=== PATIENT | male | born 1955 | race Caucasian/White ===

== ENCOUNTER 2021-03-07 20:04 | Inpatient (IN) ==
[2021-03-07] MEDS ORDERED: Ondansetron 4 MG/2 ML VIAL IVP PRN (23:48)
[2021-03-07] MEDS ORDERED: Acetaminophen 325 MG TABLET PO PRN (23:48)
[2021-03-07] MEDS ORDERED: Naloxone 0.4 MG/ML INJ IVP PRN (23:48)
[2021-03-07] MEDS ORDERED: Ipratropium 1 PUFF INHALER IH PRN (23:51)
[2021-03-08] MEDS: *HR* LORazepam 2 MG/ML VIAL IVP PRN (01:01)
[2021-03-08] MEDS ORDERED: *HR* Dextrose 50 % in Water (Syg) 50 ML SYRINGE IVP PRN (01:53)
[2021-03-08] MEDS ORDERED: D5% in Water 1,000 ML IVC PRN (01:53)
[2021-03-08] MEDS ORDERED: Dextrose Gel 15 GM/37.5 ML TUBE PO PRN ×2 (01:53)
[2021-03-08] MEDS: Dexmedetomidine HCl 400 MCG/100 ML MLS IVC SCH ×3 (02:33→20:16)
[2021-03-08 04:13] LABS: Hematocrit 42.3 % (37.5-50.1); Hemoglobin 13.2 g/dL (12.9-16.9); Mean Corpuscular HGB Conc 31.2 g/dL (31.6-35.5); Mean Corpuscular Hemoglobin 30.1 pg (28.0-33.3); Mean Corpuscular Volume 96.4 fL (83.0-100.0); Platelet Count 131 K/mcL (140-400); Red Blood Count 4.39 M/mcL (4.19-5.50); Red Cell Distribution Width 13.9 % (11.5-14.5); White Blood Count 17.3 K/mcL (4.3-11.1)
[2021-03-08 05:04] LABS: BUN/Creatinine Ratio 33 (6-26); Blood Urea Nitrogen 30 mg/dL (8-23); C-Reactive Protein 85 mg/L (Less than 10); Calcium 8.2 mg/dL (8.6-10.3); Carbon Dioxide 20 mEq/L (23-29); Chloride 109 mEq/L (98-107); Creatine Kinase 69 Units/L (30-223); Ferritin 662 ng/mL (20-250); Glucose 170 mg/dL (70-105); Lactate Dehydrogenase 755 Units/L (140-271); Osmolality,Calculated 302 (280-300); Potassium 3.8 mEq/L (3.5-5.1); Sodium 141 mEq/L (136-145); eGFR For African Americans > 60 (> 60); eGFR For Non-African Americans > 60 (> 60)
[2021-03-08] MEDS: *HR* Enoxaparin 40 MG/0.4 ML SYRINGE SQ SCH (06:37)
[2021-03-08] MEDS: Insulin LISPRO 300 UNITS/3 ML VIAL SUBQ SCH ×3 (07:52→19:02)
[2021-03-08] MEDS: Dexamethasone Sodium Phos/PF 10 MG/ML VIAL IVP SCH (07:52)
[2021-03-08 13:21] LABS: Immature Platelets 1.8 % (1.1-6.1); Mean Corpuscular Hemoglobin 30.2 pg (28.0-33.3); Mean Platelet Volume 9.3 fL (9.4-12.4); Red Cell Distribution Width 13.9 % (11.5-14.5)
[2021-03-08 13:27] LABS: Basophils # 0.1 K/mcL (0.0-0.2); Basophils % 0.7 %; Eosinophils % 0.1 %; Hematocrit 38.4 % (37.5-50.1); Hemoglobin 12.7 g/dL (12.9-16.9); Immature Granulocytes % 4.2 % (0-4); Lymphocytes # 0.5 K/mcL (0.6-4.6); Lymphocytes % 3.4 %; Mean Corpuscular HGB Conc 33.1 g/dL (31.6-35.5); Mean Corpuscular Volume 91.4 fL (83.0-100.0); Monocytes # 0.6 K/mcL (0.0-1.3); Monocytes % 4.2 %; Neutrophils # 12.6 K/mcL (1.6-8.9); Nucleated Red Blood Cells 0.4 /100 WBC (0); Platelet Count 215 K/mcL (140-400); Segmented Neutrophils % 87.4 %; White Blood Count 14.4 K/mcL (4.3-11.1)
[2021-03-08 13:39] LABS: Albumin 3.1 g/dL (3.5-5.7); Bilirubin,Direct 0.3 mg/dL (0.0-0.2); Bilirubin,Indirect 0.9 mg/dL (0.0-1.0); Bilirubin,Total 1.2 mg/dL (0.3-1.0); Total Protein 6.1 g/dL (6.4-8.9)
[2021-03-09] MEDS: Insulin LISPRO 300 UNITS/3 ML VIAL SUBQ SCH ×4 (00:24→18:32)
[2021-03-09] MEDS: *HR* Enoxaparin 40 MG/0.4 ML SYRINGE SQ SCH ×2 (05:05→20:58)
[2021-03-09] MEDS: Dexmedetomidine HCl 400 MCG/100 ML MLS IVC SCH ×2 (05:05→23:02)
[2021-03-09] MEDS: Dexamethasone Sodium Phos/PF 10 MG/ML VIAL IVP SCH (07:56)
[2021-03-09] MEDS ORDERED: Benzonatate 100 MG CAPSULE PO PRN (10:08)
[2021-03-09] MEDS: Furosemide 40 MG/4 ML VIAL IVP SCH (11:40)
[2021-03-09] MEDS: Saliva Stimulant 44.3ml BOTTLE PO PRN ×4 (12:13→20:57)
[2021-03-09] MEDS: *HR* LORazepam 2 MG/ML VIAL IVP PRN (21:22)
[2021-03-10 02:44] LABS: Basophils # 0.1 K/mcL (0.0-0.2); Basophils % 0.6 %; Hematocrit 42.7 % (37.5-50.1); Hemoglobin 13.9 g/dL (12.9-16.9); Immature Granulocytes % 4.1 % (0-4); Lymphocytes % 5.5 %; Mean Corpuscular HGB Conc 32.6 g/dL (31.6-35.5); Mean Corpuscular Hemoglobin 29.6 pg (28.0-33.3); Mean Platelet Volume 9.5 fL (9.4-12.4); Monocytes # 0.7 K/mcL (0.0-1.3); Neutrophils # 15.3 K/mcL (1.6-8.9); Nucleated Red Blood Cells 0.1 /100 WBC (0); Platelet Count 190 K/mcL (140-400); Red Blood Count 4.69 M/mcL (4.19-5.50); Red Cell Distribution Width 13.3 % (11.5-14.5); Segmented Neutrophils % 85.8 %; White Blood Count 17.9 K/mcL (4.3-11.1)
[2021-03-10] MEDS: Insulin LISPRO 300 UNITS/3 ML VIAL SUBQ SCH ×4 (02:57→18:06)
[2021-03-10 03:03] LABS: BUN/Creatinine Ratio 41 (6-26); Blood Urea Nitrogen 38 mg/dL (8-23); Calcium 8.2 mg/dL (8.6-10.3); Carbon Dioxide 28 mEq/L (23-29); Chloride 105 mEq/L (98-107); Glucose 220 mg/dL (70-105); Osmolality,Calculated 314 (280-300); Potassium 3.7 mEq/L (3.5-5.1); Sodium 144 mEq/L (136-145); eGFR For African Americans > 60 (> 60); eGFR For Non-African Americans > 60 (> 60)
[2021-03-10] MEDS ORDERED: Isovue-370 500 ML BOTTLE IVP ONE (07:16)
[2021-03-10] MEDS: Furosemide 40 MG/4 ML VIAL IVP SCH (09:39)
[2021-03-10] MEDS: Cholecalciferol (D-3) 1,000 UNIT (25MCG) TABLET PO SCH (09:39)
[2021-03-10] MEDS: Dexamethasone Sodium Phos/PF 10 MG/ML VIAL IVP SCH (09:39)
[2021-03-10] MEDS: amLODIPine 5 MG TABLET PO SCH (09:39)
[2021-03-10] MEDS: Dexmedetomidine HCl 400 MCG/100 ML MLS IVC SCH (09:53)
[2021-03-10] MEDS: *HR* Enoxaparin 40 MG/0.4 ML SYRINGE SQ SCH ×2 (09:56→19:46)
[2021-03-10] MEDS: Saliva Stimulant 44.3ml BOTTLE PO PRN ×2 (12:31→18:07)
[2021-03-10] MEDS: cefTRIAXone 1,000 MG in 0.9 % Sodium Chloride Mini Bag 100 ML IVP SCH (12:39)
[2021-03-10] MEDS ORDERED: *HR* HYDROmorphone (PF) 1 MG/ML SYRINGE IVP ONE (15:12)
[2021-03-11] MEDS: Insulin LISPRO 300 UNITS/3 ML VIAL SUBQ SCH ×4 (00:28→17:12)
[2021-03-11] MEDS: Dexmedetomidine HCl 400 MCG/100 ML MLS IVC SCH ×2 (00:29→17:19)
[2021-03-11] MEDS: *HR* LORazepam 2 MG/ML VIAL IVP PRN ×3 (02:35→22:46)
[2021-03-11] MEDS: Dexamethasone Sodium Phos/PF 10 MG/ML VIAL IVP SCH (08:56)
[2021-03-11] MEDS: Cholecalciferol (D-3) 1,000 UNIT (25MCG) TABLET PO SCH (08:56)
[2021-03-11] MEDS: amLODIPine 5 MG TABLET PO SCH (08:56)
[2021-03-11] MEDS: cefTRIAXone 1,000 MG in 0.9 % Sodium Chloride Mini Bag 100 ML IVP SCH (08:56)
[2021-03-11] MEDS: Furosemide 40 MG/4 ML VIAL IVP SCH (08:56)
[2021-03-11] MEDS: *HR* Enoxaparin 40 MG/0.4 ML SYRINGE SQ SCH (08:56)
[2021-03-11 14:15] LABS: Basophils # 0.1 K/mcL (0.0-0.2); Basophils % 0.5 %; Hematocrit 43.7 % (37.5-50.1); Immature Granulocytes % 4.1 % (0-4); Lymphocytes # 1.1 K/mcL (0.6-4.6); Lymphocytes % 4.6 %; Mean Corpuscular HGB Conc 33.4 g/dL (31.6-35.5); Mean Corpuscular Hemoglobin 30.4 pg (28.0-33.3); Mean Corpuscular Volume 90.9 fL (83.0-100.0); Mean Platelet Volume 9.6 fL (9.4-12.4); Monocytes # 0.9 K/mcL (0.0-1.3); Monocytes % 3.8 %; Neutrophils # 20.6 K/mcL (1.6-8.9); Nucleated Red Blood Cells 0.1 /100 WBC (0); Platelet Count 227 K/mcL (140-400); Red Blood Count 4.81 M/mcL (4.19-5.50); Red Cell Distribution Width 13.4 % (11.5-14.5)
[2021-03-11 14:25] LABS: Hemoglobin 14.6 g/dL (12.9-16.9); White Blood Count 23.7 K/mcL (4.3-11.1)
[2021-03-11 14:33] LABS: BUN/Creatinine Ratio 46 (6-26); Blood Urea Nitrogen 41 mg/dL (8-23); Calcium 8.4 mg/dL (8.6-10.3); Carbon Dioxide 26 mEq/L (23-29); Chloride 101 mEq/L (98-107); Glucose 224 mg/dL (70-105); Osmolality,Calculated 305 (280-300); Potassium 4.1 mEq/L (3.5-5.1); Sodium 139 mEq/L (136-145); eGFR For African Americans > 60 (> 60); eGFR For Non-African Americans > 60 (> 60)
[2021-03-11] MEDS: *HR* Enoxaparin 120 MG/0.8 ML SYRINGE SQ SCH (17:10)
[2021-03-12] MEDS: Dexmedetomidine HCl 400 MCG/100 ML MLS IVC SCH ×2 (00:12→06:50)
[2021-03-12] MEDS: Insulin LISPRO 300 UNITS/3 ML VIAL SUBQ SCH ×5 (00:13→23:49)
[2021-03-12] MEDS: *HR* Enoxaparin 120 MG/0.8 ML SYRINGE SQ SCH ×2 (06:12→18:13)
[2021-03-12 06:57] LABS: Basophils # 0.1 K/mcL (0.0-0.2); Basophils % 0.5 %; Hematocrit 43.5 % (37.5-50.1); Hemoglobin 14.4 g/dL (12.9-16.9); Immature Granulocytes % 3.8 % (0-4); Lymphocytes # 1.2 K/mcL (0.6-4.6); Lymphocytes % 5.1 %; Mean Corpuscular HGB Conc 33.1 g/dL (31.6-35.5); Mean Corpuscular Hemoglobin 30.1 pg (28.0-33.3); Mean Corpuscular Volume 90.8 fL (83.0-100.0); Mean Platelet Volume 10.2 fL (9.4-12.4); Monocytes # 1.4 K/mcL (0.0-1.3); Monocytes % 5.6 %; Neutrophils # 20.8 K/mcL (1.6-8.9); Nucleated Red Blood Cells 0.1 /100 WBC (0); Platelet Count 209 K/mcL (140-400); Red Blood Count 4.79 M/mcL (4.19-5.50); Red Cell Distribution Width 13.2 % (11.5-14.5); White Blood Count 24.5 K/mcL (4.3-11.1)
[2021-03-12 07:15] LABS: BUN/Creatinine Ratio 44 (6-26); Blood Urea Nitrogen 43 mg/dL (8-23); Calcium 8.2 mg/dL (8.6-10.3); Carbon Dioxide 25 mEq/L (23-29); Chloride 101 mEq/L (98-107); Glucose 204 mg/dL (70-105); Osmolality,Calculated 305 (280-300); Potassium 4.3 mEq/L (3.5-5.1); Sodium 139 mEq/L (136-145); eGFR For African Americans > 60 (> 60); eGFR For Non-African Americans > 60 (> 60)
[2021-03-12] MEDS: Furosemide 40 MG/4 ML VIAL IVP SCH (08:19)
[2021-03-12] MEDS: Dexamethasone Sodium Phos/PF 10 MG/ML VIAL IVP SCH (08:19)
[2021-03-12] MEDS: cefTRIAXone 1,000 MG in 0.9 % Sodium Chloride Mini Bag 100 ML IVP SCH (08:20)
[2021-03-12] MEDS: amLODIPine 5 MG TABLET PO SCH (08:20)
[2021-03-12] MEDS: Cholecalciferol (D-3) 1,000 UNIT (25MCG) TABLET PO SCH (08:20)
[2021-03-12] MEDS: Acetylcysteine 10% 2 ML INHSOL IH SCH ×3 (11:11→20:32)
[2021-03-12] MEDS: Ipratropium/Albuterol Neb 3 ML IH SCH ×3 (11:11→20:32)
[2021-03-12] MEDS: Venlafaxine XR (24 HR) 75 MG CAP.ER.24H PO SCH (11:51)
[2021-03-12] MEDS: *HR* LORazepam 2 MG/ML VIAL IVP PRN (15:56)
[2021-03-12] MEDS ORDERED: 0.9 % Sodium Chloride 500 ML IVC ONE (18:19)
[2021-03-12] MEDS ORDERED: *HR* LORazepam 2 MG/ML VIAL IVP ONE (19:38)
[2021-03-13] MEDS: *HR* LORazepam 2 MG/ML VIAL IVP PRN ×2 (02:14→13:00)
[2021-03-13] MEDS: Ipratropium/Albuterol Neb 3 ML IH SCH ×2 (03:44→08:13)
[2021-03-13] MEDS: Acetylcysteine 10% 2 ML INHSOL IH SCH ×2 (03:44→08:13)
[2021-03-13 04:04] LABS: Platelet Count 219 K/mcL (140-400)
[2021-03-13 04:06] LABS: Basophils # 0.1 K/mcL (0.0-0.2); Basophils % 0.3 %; Hematocrit 40.7 % (37.5-50.1); Hemoglobin 13.5 g/dL (12.9-16.9); Immature Granulocytes % 2.7 % (0-4); Lymphocytes # 1.3 K/mcL (0.6-4.6); Lymphocytes % 4.5 %; Mean Corpuscular HGB Conc 33.2 g/dL (31.6-35.5); Mean Corpuscular Hemoglobin 30.1 pg (28.0-33.3); Mean Corpuscular Volume 90.8 fL (83.0-100.0); Mean Platelet Volume 10.4 fL (9.4-12.4); Monocytes # 1.6 K/mcL (0.0-1.3); Monocytes % 5.4 %; Neutrophils # 25.3 K/mcL (1.6-8.9); Red Blood Count 4.48 M/mcL (4.19-5.50); Red Cell Distribution Width 13.3 % (11.5-14.5); Segmented Neutrophils % 87.1 %
[2021-03-13 04:11] LABS: BUN/Creatinine Ratio 43 (6-26); Blood Urea Nitrogen 50 mg/dL (8-23); Calcium 7.8 mg/dL (8.6-10.3); Carbon Dioxide 24 mEq/L (23-29); Chloride 102 mEq/L (98-107); Glucose 167 mg/dL (70-105); Osmolality,Calculated 305 (280-300); Potassium 3.3 mEq/L (3.5-5.1); Sodium 139 mEq/L (136-145); eGFR For African Americans > 60 (> 60); eGFR For Non-African Americans > 60 (> 60)
[2021-03-13 04:39] LABS: Platelet Estimate Normal (Normal)
[2021-03-13] MEDS: *HR* Enoxaparin 120 MG/0.8 ML SYRINGE SQ SCH (05:53)
[2021-03-13] MEDS: Insulin LISPRO 300 UNITS/3 ML VIAL SUBQ SCH (05:54)
[2021-03-13] MEDS: Dexamethasone Sodium Phos/PF 10 MG/ML VIAL IVP SCH (08:08)
[2021-03-13] MEDS: Furosemide 40 MG/4 ML VIAL IVP SCH (08:08)
[2021-03-13] MEDS: Cholecalciferol (D-3) 1,000 UNIT (25MCG) TABLET PO SCH (08:09)
[2021-03-13] MEDS: Venlafaxine XR (24 HR) 75 MG CAP.ER.24H PO SCH (08:10)
[2021-03-13] MEDS: amLODIPine 5 MG TABLET PO SCH (08:21)
[2021-03-13 09:21] LABS: Magnesium 2.7 mg/dL (1.6-2.6); Phosphorous 4.1 mg/dL (2.7-4.5); Triglycerides 270 mg/dL (< 150)
[2021-03-13 10:41] VITALS: TEMP 98
[2021-03-13] MEDS ORDERED: D10% in Water 500 ML IVC PRN (11:43)
[2021-03-13] MEDS ORDERED: Potassium Chloride Elixir 20 MEQ/15 ML UDC PO ONE (11:48)
[2021-03-13] MEDS ORDERED: Insulin LISPRO 300 UNITS/3 ML VIAL SUBQ SCH (12:00)
[2021-03-13] MEDS ORDERED: *HR* LORazepam 2 MG/ML VIAL IVP PRN (14:28)
[2021-03-13] MEDS ORDERED: Morphine Sulfate 2 MG/ML SYRINGE IVP PRN ×2 (14:30→14:31)
[2021-03-13 15:34] VITALS: BP 117/71; PULSE 99; O2SAT 84
[2021-03-13] MEDS ORDERED: Ipratropium/Albuterol Neb 3 ML IH PRN (15:39)
[2021-03-13] MEDS ORDERED: Fat Emulsion 250 ML IVPB SCH (17:00)
[2021-03-13] MEDS ORDERED: Clinimix 5%-20% SOLUTION 2,000 ML with MVI, adult with vitamin K 10 ML, Sodium Phosph... IVC SCH (17:00)
== END 2021-03-13 19:05 | disposition expired | DRG 137 ==
LOC: 2NNU → SUATTDRO 23:48
PROVIDERS: ADMIT Student in an Organized Health Care Education/Training Program; ATTEND Internal Medicine